=== PATIENT | female | born 1975 | race Caucasian/White ===

== ENCOUNTER 2017-12-20 08:00 | Outpatient (CLI) | payer BC | END 2017-12-20 09:00 | disposition home or self-care (01) | LOC: D.MAMMO 08:00 | DX: Z12.31 Encounter for screening mammogram for malignant neoplasm of breast (principal) ==

== ENCOUNTER → 2018-01-12 18:15 | Outpatient (CLI) | payer BC | END | disposition home or self-care (01) | LOC: D.MAMMO 10:00 | DX: R92.8 Other abnormal and inconclusive findings on diagnostic imaging of breast (principal) ==

== ENCOUNTER 2020-02-16 13:45 | Outpatient (CLI) | payer SELFPAY | END 2020-02-16 16:00 | disposition home or self-care (01) | LOC: D.MAMMO 13:45 | PROVIDERS: ATTEND Emergency Medicine | DX: Z12.31 Encounter for screening mammogram for malignant neoplasm of breast (principal) ==